=== PATIENT | male | born 1950 | race Caucasian/White ===

== ENCOUNTER 2025-07-08 14:34 | Outpatient (CLI) | payer MEDICARE | END 2025-07-08 14:35 | disposition home or self-care (01) | LOC: EEVIPCON 14:34 → CSHULT 14:34 | PROVIDERS: ATTEND Internal Medicine Hematology & Oncology | DX: C43.8 Malignant melanoma of overlapping sites of skin (principal) | CPT/HCPCS: 76999 ==